=== PATIENT | male | born 1950 | race Caucasian/White ===

== ENCOUNTER 2021-02-16 15:37 | Emergency (ER) | payer MEDICARE ==
--- NOTE | 2021-02-16 16:25 | XRAY Report ---
PROCEDURE: Finger(s) RT INDICATIONS: trauma TECHNIQUE: AP hand, 2 views of the ring finger(s) acquired. COMPARISON: None FINDINGS: Bones: No fractures or dislocations. No suspicious bony lesions. Soft tissues: No suspicious soft tissue calcifications. IMPRESSION: No acute bony abnormality. Reviewed by: Wayne Aguayo on 02/16/2021 3:23 PM JEFERSON Approved by: Wayne Aguayo on 02/16/2021 3:23 PM AKLENNIE Station ID: [id number]
[2021-02-16] MEDS ORDERED: BUFFERED LIDOCAINE 10 ML SYRINGE SUBQ STA (16:35)
--- NOTE | 2021-02-16 16:38 | ED Physician Documentation ---
PD HPI UPPER EXT INJURY - Stated complaint Stated Complaint: RT FINGER LAC - Chief complaint Chief Complaint: Trauma Ext - History obtained from History obtained from: Patient - History of Present Illness Location: Right, Finger (ring) Type of injury: Blunt / blow Where injury occurred: Home Timing - onset: Today Timing - duration: Hours Timing - details: Abrupt onset, Still present Improved by: Rest, Immobilization Worsened by: Moving, Palpating Associated symptoms: No: Weakness, Numbness, Tingling, Swelling Contributing factors: No: Anticoagulated Similar symptoms before: Diagnosis (laceration) Recently seen: Not recently seen - Additonal information Additional information: Previously well 70-year-old male was using a sledgehammer to pounding a piece of rebar and he was wearing a thick pair gloves and he went to pound down on this piece of rebar he missed the rebar and he pounded his finger down onto the rebar itself. It did not lino the gloves but it lacerated the skin underneath. He is able to flex and extend the finger and is up-to-date on his tetanus. Review of Systems Constitutional: denies: Fever Nose: denies: Congestion Respiratory: denies: Cough GI: denies: Vomiting PD PAST MEDICAL HISTORY - Allergies Allergies/Adverse Reactions: Allergies Allergy/AdvReac Type Severity Reaction Status Date / Time No Known Drug Allergies Allergy Verified 02/16/21 16:00 PD ED PE NORMAL - Vitals Vital signs reviewed: Yes (Hypertensive mild) - General General: Alert and oriented X 3, No acute distress, Well developed/nourished - HEENT HEENT: Atraumatic, PERRL, EOMI - Respiratory Respiratory: No respiratory distress - Derm Derm: Normal color, Warm and dry, No rash - Extremities Extremities: Other (The right ring finger has a laceration over the distal interphalangeal joint that is a flap and does not appear to have foreign material in the wound. It is deep to the deeper structures but does not cut into the tendon.) - Neuro Neuro: Alert and oriented X 3, performance analyst 2-12 intact, No motor deficit, No sensory deficit, Normal speech Eye Opening: Spontaneous Motor: Obeys Commands Verbal: Oriented GCS Score: 15 - Psych Psych: Normal mood, Normal affect Results - Vitals Vitals: Vital Signs - 24 hr 02/16/21 15:58 Temperature 36.2 C L Heart Rate 88 Respiratory 16 Rate Blood Pressure 125/84 H O2 Saturation 97 Oxygen O2 Source Room air - Rads (name of study) fingers Radiology: Prelim report reviewed (Impression: No acute bony abnormality.), EMP read indepedently, See rad report Procedures - Laceration (location) right ring finger Length in cm: 3 Wound type: Curved, Flap, Into subcut fat, Clean, Other (exposure of extensor tendon) Neurovascular status: Sensory intact, Motor intact, Vascular intact Tendon involvement: Tendon intact Anesthesia: Lidocaine 1%, With bicarb Wound preparation: Hibiclens, Irrigated copiously NS, Wound explored, To the base Skin layer closure: Nylon, Interrupted, Size #-0 - enter number (4-0) Other: Patient tolerated well, No complications, Neurovascular intact, Dressing applied, Tetanus UTD PD MEDICAL DECISION MAKING - ED course ED course: The right ring finger has a laceration over the distal interphalangeal joint that is a flap and does not appear to have foreign material in the wound. It is deep to the deeper structures but does not cut into the tendon. Departure - Departure Disposition: 01 Home, Self Care Clinical Impression: Finger laceration Qualifiers: Encounter type: initial encounter Finger: ring finger Damage to nail status: without damage Foreign body presence: without foreign body Laterality: right Qualified Code(s): S61.214A - Laceration without foreign body of right ring finger without damage to nail, initial encounter Condition: Stable Instructions: ED Laceration Hand Follow-Up: Mitchell Doan MD [Primary Care Provider] - Comments: Sutures should be removed in 10 days
[2021-02-16] MEDS ORDERED: BACITRACIN ZINC OINT 1 PACKET TOP STA (17:24)
[2021-02-16 17:56] VITALS: BP 125/77
== END 2021-02-16 17:55 | disposition home or self-care (01) ==
LOC: ED 15:37
DX: S61.214A Laceration without foreign body of right ring finger without damage to nail, initial encounter (principal); W22.8XXA Striking against or struck by other objects, initial encounter; W27.0XXA Contact with workbench tool, initial encounter; Y92.009 Unspecified place in unspecified non-institutional (private) residence as the place of occurrence of the external cause
CPT/HCPCS: 12002; 73140; 99282; 99283; A9270